=== PATIENT | female | born 1965 | race African-American/Black ===

== ENCOUNTER 2016-08-31 20:49 | Emergency (ER) | payer BC ==
[~2016-08-31] VITALS: Ht 165.1 cm; Wt 74.8 kg
[2016-08-31] MEDS ORDERED: NORCO 5-325 TA1 EACH PO (21:45)
[2016-08-31] MEDS ORDERED: ZANTAC 150MG T150 MG PO (21:54)
[2016-08-31 22:22] VITALS: BP 155/86
== END 2016-08-31 22:23 | disposition home or self-care (01) ==
LOC: ER 20:49
DX: M79.674 Pain in right toe(s) (principal); V49.40XA Driver injured in collision with unspecified motor vehicles in traffic accident, initial encounter; Y93.I9 Activity, other involving external motion; Y92.89 Other specified places as the place of occurrence of the external cause; Y99.8 Other external cause status